=== PATIENT | female | born 1985 | race Caucasian/White ===

== ENCOUNTER → 2019-01-05 12:04 | Outpatient (CLI) | payer SELFPAY ==
--- NOTE | 2019-01-05 | DI.US.S_ITS ---
PROCEDURE: US OB >= 14 WEEKS FETUS INDICATIONS: 20 WEEK ANATOMICAL SURVEY OUTSIDE/PRIOR DATING DATA: Last menstrual period (LMP): Unknown. LMP-based estimated date of delivery (EWELINA): Not available. First dating scan (date and location): 10/28/18, [facility]. Estimated date of delivery (EWELINA) from first dating scan: 06/09/19.. TECHNIQUE: Real-time scanning was performed of the fetus, with image documentation and biometric measurements. Endovaginal scanning: No COMPARISON: [facility], US, US OB < 14 WEEKS + OB TRANSVAG, 10/28/2018, 12:44. FINDINGS: General: A single living intrauterine gestation is present. Presentation: Breech. Placenta: Placental position is posterior, and low lying with the anterior margin 1.5 cm above the internal cervical os. Amniotic fluid index: Subjectively normal. heart rate: 147 beats per minute. Maternal cervical canal: 3.9 cm long. Normal lower limit is 2.5 cm. biometrics: Biparietal diameter: 18 weeks 0 days Head circumference: 17 weeks 6 days Abdominal circumference: 18 weeks Femur length: 18 weeks Estimated gestational age from initial scan: 17 weeks 6 days Composite gestational age from present scan: 17 weeks 6 days Estimated weight and percentile: 218 g; 52nd percentile Measurement variability for biometric dating: +/- 7 days from 14 weeks to 15 weeks 6 days gestation, +/- 10 days from 16 weeks to 21 weeks 6 days gestation, +/- 2 weeks from 22 weeks to 27 weeks 6 days gestation, +/- 3 weeks for 28 weeks gestation or later. weight reference: 4500 g or EFW >90/95% is considered macrosomia or large for gestational age. EFW <10% is small for gestational age. EFW 5% or less is considered intra-uterine growth restriction. Anatomic survey: Neuro: Ventricles are non-dilated at less than 10 mm. Cisterna magna is normal at 3-11 mm. Cerebellum is normal in size and morphology. Nuchal skin fold: Normal at less than 6 mm between 14-21 weeks gestational age. Face: Nose and lips are normal and the facial profile not well visualized. Spine: Not well-visualized. Heart: Not well-visualized. Diaphragm: Diaphragm is intact. Stomach: Left-sided stomach is present. Kidneys: No hydronephrosis. Normal is less than 5 mm in 2nd trimester, less than 7 mm in 3rd trimester. Cord: 3-vessel cord has orthotopic insertion. Bladder: Normal in size. Extremities: All 4 extremities identified. IMPRESSION: Normal interval growth and limited anatomic survey. Followup recommended. Low lying placenta. Followup recommended. Dictated by: Sorin CABALLERO Interpreted: Meera Corbett MD on 01/05/2019 at 16:11 Approved by: Meera Corbett M.D. on 01/05/2019 at 17:07
== END ==
PROVIDERS: Visit Provider Physician Assistant Medical
DX: Z36.89 Encounter for other specified antenatal screening (principal); Z3A.17 17 weeks gestation of pregnancy
CPT/HCPCS: 76811